=== PATIENT | female | born 1940 | race Caucasian/White ===

== ENCOUNTER 2022-02-14 18:49 | Emergency (ER) | payer OTHER ==
[~2022-02-14] VITALS: Ht 162.6 cm; Wt 86.2 kg
[2022-02-14 19:00] VITALS: BP 137/86
--- NOTE | 2022-02-14 19:07 | NUR ---
[id number] [facility] "MOTA CATHETER PULLED OUT WHILE TRYING TO GET UP" A/OX3. TOLERATING R/A WELL WITH NO RESP DISTRESS. SAFETY MEASURES IN PLACE.
--- NOTE | 2022-02-14 19:55 | NUR ---
INSERTED 16FR F/C WITH URINE RETURN
--- NOTE | 2022-02-14 20:14 | NUR ---
[facility] CALLED FOR BLS GOING BACK TO SNF PER [facility] ETA- 1 HOUR
--- NOTE | 2022-02-14 21:27 | NUR ---
REPORT GIVEN TO [facility] AND EMS AT PT'S BEDSIDE TO D/C PATIENT BACK TO [facility]
== END 2022-02-14 21:30 | disposition home or self-care (01) ==
LOC: ER 18:49
DX: Z46.6 Encounter for fitting and adjustment of urinary device (principal)

== ENCOUNTER 2022-03-11 20:07 | Emergency (ER) | payer OTHER ==
[~2022-03-11] VITALS: Ht 167.6 cm; Wt 78.9 kg
--- NOTE | 2022-03-11 20:20 | NUR ---
[id number] from [facility], c/o aldridge discomfort, aldridge bag was full and relieved after emptying the bag, no complaints of discomfort at the moment. Patient is AAOX4. Able to make needs known. Placed comfortably in bed. Vitals checked.
--- NOTE | 2022-03-11 20:29 | NUR ---
SIZING SPONGER AT BEDSIDE
--- NOTE | 2022-03-11 20:29 | NUR ---
URINE SPECIMEN SENT TO LAB
[2022-03-11 20:40] LABS: BASOPHILS # (AUTO) 0.1 K/uL (0.0-0.2); BASOPHILS % (AUTO) 0.6 % (0.0-2.0); EOSINOPHILS % (AUTO) 3.4 % (0.0-6.0); HEMATOCRIT 36 % (33-45); HEMOGLOBIN 11.5 g/dL (11.5-14.8); LYMPHOCYTES # (AUTO) 1.1 K/uL (0.8-4.8); MEAN CORPUSCULAR HGB CONC 32 g/dl (31.0-36.0); MEAN CORPUSCULAR VOLUME 98 fL (82-100); MONOCYTES # (AUTO) 0.8 K/uL (0.1-1.30); MONOCYTES % (AUTO) 8.6 % (2.0-12.0); NEUTROPHILS # (AUTO) 6.9 K/uL (1.8-8.9); NEUTROPHILS % (AUTO) 75.4 % (43.0-81.0); PLATELET COUNT (AUTO) 213 K/uL (150-450); WHITE BLOOD COUNT (AUTO) 9.2 K/uL (4.3-11.0)
[2022-03-11 20:49] LABS: CALCIUM, SERUM 10.5 mg/dL (8.5-10.1); CREATININE 1.3 mg/dL (0.6-1.3); POTASSIUM 3.9 mmol/L (3.5-5.1)
[2022-03-11 20:55] LABS: ALBUMIN 3.5 g/dL (3.4-5.0); BILIRUBIN,DIRECT 0.1 mg/dL (0.0-0.2); BILIRUBIN,TOTAL 0.4 mg/dL (0.2-1.0); TOTAL PROTEIN, SERUM 6.5 g/dL (6.4-8.2)
--- NOTE | 2022-03-11 21:24 | NUR ---
BROUGHT TO CT DEPT
--- NOTE | 2022-03-11 22:13 | NUR ---
[facility] WILL TRANSPORT PT BACK TO FACILITY IN APPROX 90 MINS
[2022-03-11 22:15] LABS: BILIRUBIN,URINE NEGATIVE (NEGATIVE); COLOR,URINE DARK YELLOW (YELLOW); LEUKOCYTE ESTERASE ,URINE 1+ (NEGATIVE); NITRITE, URINE POSITIVE (NEGATIVE); PH,URINE 7.5 (5.0-8.0); PROTEIN,URINE TRACE mg/dl (NEGATIVE); UGLUCOSE NEGATIVE (NEGATIVE); UROBILINOGEN,URINE 0.2 EU/dL (0.2)
[2022-03-11] MEDS ORDERED: CEPH500T PO (22:16)
[2022-03-11 22:18] LABS: BACTERIA,URINE Many /HPF (None Seen); SQUAMOUS EPITHELIAL CELL,UR Few /HPF (None Seen)
[2022-03-11] MEDS ORDERED: CEFTRIAXONE 1 G VIAL ONE (22:21)
[2022-03-11] MEDS ORDERED: CEFTRIAXONE 1GM BAG (ER ONLY) 50 ML IV ONE (22:30)
--- NOTE | 2022-03-11 22:49 | NUR ---
DRAIN URINE FROM [facility]
--- NOTE | 2022-03-12 00:05 | NUR ---
REPORT GIVEN TO SUSAN TROY OF [facility]. PATIENT IS GOING BACK TO [facility]
[2022-03-12 00:06] VITALS: BP 134/76
--- NOTE | 2022-03-17 02:10 | NUR ---
Marilyn lara in [facility] - 03/17/22 at 0212 by JENNIFER REPORT GIVEN TO SHAQ
== END 2022-03-12 00:49 | disposition home or self-care (01) ==
LOC: ER 20:12
DX: N39.0 Urinary tract infection, site not specified (principal); I10 Essential (primary) hypertension; E78.5 Hyperlipidemia, unspecified; F41.9 Anxiety disorder, unspecified; Z88.8 Allergy status to other drugs, medicaments and biological substances
CPT/HCPCS: 99285; 74176; 96365; 85025; 80048; 87086; 83690; 80076; 81001; 36415; J0696

== ENCOUNTER 2022-03-17 01:23 | Emergency (ER) | payer OTHER ==
[~2022-03-17] VITALS: Ht 162.6 cm; Wt 78.9 kg
[~2022-03-17 01:23] MED LIST: CEPH500T PO
[2022-03-17 01:47] VITALS: BP 143/106
--- NOTE | 2022-03-17 02:00 | NUR ---
REPOSITION OF [facility] DONE.
--- NOTE | 2022-03-17 02:13 | NUR ---
REPORT GIVEN TO ESPINOZA OF [facility]
--- NOTE | 2022-03-17 02:16 | NUR ---
[facility] CALLED FOR BLS GOING BACK TO SNF PER [facility] ETA 30 MIN
--- NOTE | 2022-03-17 02:32 | NUR ---
REPORT GIVEN TO SUSAN MOLINA OF [facility] [address]
== END 2022-03-17 02:58 | disposition home or self-care (01) ==
LOC: ER 01:33
DX: L30.4 Erythema intertrigo (principal); Z71.1 Person with feared health complaint in whom no diagnosis is made; I10 Essential (primary) hypertension; E78.5 Hyperlipidemia, unspecified; F41.9 Anxiety disorder, unspecified; Z88.8 Allergy status to other drugs, medicaments and biological substances; Z79.899 Other long term (current) drug therapy

== ENCOUNTER 2022-03-26 20:02 | Emergency (ER) | payer OTHER ==
[~2022-03-26] VITALS: Ht 157.5 cm; Wt 81.6 kg
--- NOTE | 2022-03-26 20:38 | NUR ---
BIBRA [facility] FROM [facility] FOR POSTERIOR HEAD AND R HIP PAIN S/P FALL. DENIED KO. VSS. WILL CONT TO MONITOR
[2022-03-26] MEDS ORDERED: ACETAMINOPHEN ES 500 MG TABLET ONE (20:51)
[2022-03-26] MEDS ORDERED: ACETAMINOPHEN ES 500 MG TABLET PO ONE (21:00)
--- NOTE | 2022-03-26 21:03 | NUR ---
PATIENT TAKEN TO CT VIA JUAN M
[2022-03-26 21:52] VITALS: BP 122/72
--- NOTE | 2022-03-26 22:26 | NUR ---
PER [place] [facility] ETA FOR TRASPORTATION IS 2330 [facility] BLS
--- NOTE | 2022-03-26 22:53 | NUR ---
[facility] AT BEDSIDE FOR TRANSPORT TO [facility].
== END 2022-03-26 23:15 ==
LOC: ER 20:04
DX: S09.90XA Unspecified injury of head, initial encounter (principal); I10 Essential (primary) hypertension; E78.5 Hyperlipidemia, unspecified; Z86.73 Personal history of transient ischemic attack (TIA), and cerebral infarction without residual deficits; F41.9 Anxiety disorder, unspecified; Z88.8 Allergy status to other drugs, medicaments and biological substances; Z79.899 Other long term (current) drug therapy; W01.0XXA Fall on same level from slipping, tripping and stumbling without subsequent striking against object, initial encounter; Y93.89 Activity, other specified; Y92.89 Other specified places as the place of occurrence of the external cause; Y99.8 Other external cause status
CPT/HCPCS: 70450-TC; 72170-TC